=== PATIENT | male | born 1950 | race Caucasian/White ===

== ENCOUNTER → 2021-12-22 | Outpatient (CLI) | payer MEDICARE ==
--- NOTE | 2021-12-22 15:28 | XR ---
EXAMINATION TYPE: XR abdomen complete w decub DATE OF EXAM: 12/22/2021 CLINICAL HISTORY: History of Crohn's disease with pain rule out obstruction TECHNIQUE: Supine, upright, and left side down lateral decubitus views of the abdomen are obtained. COMPARISON: Abdominal x-ray November 28, 2017. FINDINGS: Some paucity of bowel gas. Some scattered gas in nondistended stomach. Single air-fluid le mitzy in the right mid abdomen. Surgical sutures overlie the lower abdomen and upper pelvis. Right pelv ic ostomy bag. No free air. Lung bases are clear. Visualized osseous structures are intact. IMPRESSION: Overall nonspecific bowel gas pattern redemonstrated similar to prior.
== END | disposition home or self-care (01) ==
LOC: RADXRMAIN 14:38
PROVIDERS: ATTEND Internal Medicine Gastroenterology
DX: R10.9 Unspecified abdominal pain (principal)
CPT/HCPCS: 74021

== ENCOUNTER → 2021-12-30 | Outpatient (CLI) | payer MEDICARE ==
[2021-12-30 18:14] LABS: HCT 45.9 % (39.6-50.0); HGB 15.1 g/dL (13.0-17.0); MCH 30.1 pg (27.0-32.0); MCHC 32.9 g/dL (32.0-37.0); MCV 91.4 fL (80.0-97.0); Mean Platelet Volume 9.6 fL (9.5-12.2); Platelet Count 194 X 10*3/uL (140-440); RBC 5.02 X 10*6/uL (4.40-5.60); RDW 12.5 % (11.5-14.5); WBC 7.54 X 10*3/uL (4.50-10.00)
[2021-12-30 18:39] LABS: % Iron Saturation 14.22 (15.00-50.00); ALT 19 U/L (10-49); AST 20 U/L (14-35); African American GFR (CKD) 57.8 (60.0-200.0); Albumin 4.2 g/dL (3.8-4.9); Albumin/Globulin Ratio 1.67 (1.60-3.17); Alkaline Phosphatase 76 U/L (41-126); BUN/Creat Ratio 10.14 Ratio (12.00-20.00); Blood Urea Nitrogen 14.2 mg/dL (9.0-27.0); Calcium 8.8 mg/dL (8.7-10.3); Carbon Dioxide 22.2 mmol/L (20.0-27.5); Chloride 97 mmol/L (96-109); Globulin 2.5 g/dL (1.6-3.3); Glucose 105 mg/dL (70-110); Iron 63 ug/dL (65-175); Non-African American GFR(CKD) 49.8 (60.0-200.0); Potassium 4.1 mmol/L (3.5-5.5); Sodium 133 mmol/L (135-145); Total Iron Binding Capacity 440 ug/dL (228-460); Total Protein 6.7 g/dL (6.2-8.2)
[2021-12-30 18:48] LABS: C Reactive Protein <0.30 mg/dL (0.00-0.80)
== END | disposition home or self-care (01) ==
LOC: LABWHC1 13:18
PROVIDERS: ATTEND Internal Medicine Gastroenterology
DX: K50.018 Crohn's disease of small intestine with other complication (principal)
CPT/HCPCS: 36415; 80053; 82607; 82746; 83540; 83550; 85027; 86140

== ENCOUNTER → 2022-02-24 | Outpatient (CLI) | payer MEDICARE ==
[2022-02-24 23:25] LABS: Basophils # (A) 0.03 X 10*3/uL (0.00-0.10); Basophils % (A) 0.4 %; Eosinophils # (A) 0.05 X 10*3/uL (0.04-0.35); Eosinophils % (A) 0.7 %; Immature Grans, Automated 0.3 %; Lymphocytes # (A) 1.29 X 10*3/uL (0.90-5.00); Lymphocytes % (A) 16.8 %; Monocytes # (A) 0.47 X 10*3/uL (0.20-1.00); Monocytes % (A) 6.1 %; NRBC Per 100 WBC 0 /100 WBCS (0.0-0.0); Neutrophils # (A) 5.81 X 10*3/uL (1.80-7.70); Neutrophils % (A) 75.7 %
[2022-02-24 23:26] LABS: HCT 56.8 % (39.6-50.0); HGB 19.5 g/dL (13.0-17.0); MCH 29.5 pg (27.0-32.0); MCHC 34.3 g/dL (32.0-37.0); MCV 85.8 fL (80.0-97.0); Mean Platelet Volume 9.8 fL (9.5-12.2); Platelet Count 219 X 10*3/uL (140-440); RBC 6.62 X 10*6/uL (4.40-5.60); RDW 12.7 % (11.5-14.5); WBC 7.67 X 10*3/uL (4.50-10.00)
[2022-02-24 23:27] LABS: RBC Morphology NORMAL
[2022-02-25 06:17] LABS: Prostate Specific Antigen 0.9 ng/mL (0.00-6.50); T4, Free (Free Thyroxine) 1.82 ng/dL (0.800-1.800)
== END | disposition home or self-care (01) ==
LOC: LABWHC1 11:24
PROVIDERS: ATTEND Internal Medicine
DX: Z00.00 Encounter for general adult medical examination without abnormal findings (principal); E53.8 Deficiency of other specified B group vitamins; I49.9 Cardiac arrhythmia, unspecified; Z86.39 Personal history of other endocrine, nutritional and metabolic disease; E78.5 Hyperlipidemia, unspecified; I10 Essential (primary) hypertension; D75.1 Secondary polycythemia; M15.0 Primary generalized (osteo)arthritis
CPT/HCPCS: 36415; 80053; 82607; 82746; 84153; 84439; 84443; 85025

== ENCOUNTER → 2022-07-06 | Outpatient (CLI) | payer MEDICARE ==
[2022-07-06 11:34] LABS: Basophils # (A) 0.01 X 10*3/uL (0.00-0.10); Basophils % (A) 0.2 %; Eosinophils # (A) 0.13 X 10*3/uL (0.04-0.35); Eosinophils % (A) 2.5 %; HCT 44.6 % (39.6-50.0); HGB 14.7 g/dL (13.0-17.0); Immature Grans, Automated 0.2 %; Lymphocytes # (A) 1.45 X 10*3/uL (0.90-5.00); Lymphocytes % (A) 28.4 %; MCH 29.6 pg (27.0-32.0); MCV 89.9 fL (80.0-97.0); Monocytes # (A) 0.34 X 10*3/uL (0.20-1.00); Monocytes % (A) 6.7 %; NRBC Per 100 WBC 0 /100 WBCS (0.0-0.0); Neutrophils # (A) 3.16 X 10*3/uL (1.80-7.70); Platelet Count 188 X 10*3/uL (140-440); RBC 4.96 X 10*6/uL (4.40-5.60); RDW 14.2 % (11.5-14.5)
[2022-07-06 14:37] LABS: Chol/HDL Ratio 2.89 Ratio; LDL Cholesterol,Calculated 69.8 mg/dL (0.0-131.0)
== END | disposition home or self-care (01) ==
LOC: LABWHC1 08:06
PROVIDERS: ATTEND Internal Medicine
DX: Z12.5 Encounter for screening for malignant neoplasm of prostate (principal); E78.5 Hyperlipidemia, unspecified; I10 Essential (primary) hypertension; N18.32 Chronic kidney disease, stage 3b; E53.8 Deficiency of other specified B group vitamins; Z86.39 Personal history of other endocrine, nutritional and metabolic disease
CPT/HCPCS: 36415; 80061; 82607; 82746; 83036; 84153; 84439; 84443; 85025

== ENCOUNTER → 2022-08-24 | Outpatient (CLI) | payer MEDICARE ==
[2022-08-24 11:26] LABS: African American GFR (CKD) 51.1 (60.0-200.0); Albumin 4.5 g/dL (3.8-4.9); Albumin/Globulin Ratio 1.7 (1.60-3.17); Anion Gap 11.9 mmol/L (10.00-18.00); BUN/Creat Ratio 17.01 Ratio (12.00-20.00); Blood Urea Nitrogen 26.2 mg/dL (9.0-27.0); Calcium 8.9 mg/dL (8.7-10.3); Carbon Dioxide 20.3 mmol/L (20.0-27.5); Globulin 2.6 g/dL (1.6-3.3); Non-African American GFR(CKD) 44.1 (60.0-200.0); Potassium 4.5 mmol/L (3.5-5.5); Total Bilirubin 0.2 mg/dL (0.30-1.20); Total Protein 7.1 g/dL (6.2-8.2)
== END | disposition home or self-care (01) ==
LOC: LABWHC1 08:13
PROVIDERS: ATTEND Internal Medicine Gastroenterology
DX: K50.90 Crohn's disease, unspecified, without complications (principal)
CPT/HCPCS: 36415; 80053